=== PATIENT | female | born 1995 | race Hispanic/Latino ===

== ENCOUNTER 2017-04-12 00:21 | Emergency (ER) | payer OTHER ==
[~2017-04-12] VITALS: Ht 154.9 cm; Wt 86.9 kg
[~2017-04-12 00:21] MED LIST: BACTRIM,SEPT1 TABLET PO
[2017-04-12 00:29] VITALS: BP 138/87
[2017-04-12 00:50] LABS: HEMATOCRIT 41.8 % (36.0-46.0); MCH 29.5 PG (29.0-34.0); MCHC 34.2 G/DL (30.0-36.0); MCV 86.4 FL (83-99); MEAN PLAT.VOLUME 11.1 uM^3 (9.5-12.4); PLATELET COUNT 325 K/uL (156-360); RBC DIS.WIDTH-CV 12.6 % (11.8-14.6); RBC DIS.WIDTH-SD 39.5 % (39-53); RED BLOOD COUNT 4.84 M/uL (3.80-5.20); WHITE BLOOD COUNT 14.2 K/uL (4.1-10.2)
[2017-04-12 01:14] LABS: QUANTITATIVE HCG 3354.5 MIU/ML
[2017-04-12 02:02] LABS: CHLORIDE 108 mEq/L (99-109); POTASSIUM 3.7 mEq/L (3.7-5.4); SODIUM 139 mEq/L (136-147)
[2017-04-12 02:04] LABS: GLUCOSE 167 mg/dL (70-99)
[2017-04-12 02:05] LABS: ANION GAP 12 MEQ/L (2-14)
[2017-04-12 02:07] LABS: GFR ESTIMATE (CALCULATED) > 59 mL/min/
[2017-04-12 02:08] LABS: UREA NITROGEN (BUN) 9 mg/dL (9-23)
== END 2017-04-12 01:45 | disposition left against medical advice (07) ==
LOC: EME 00:21
DX: O26.891 Other specified pregnancy related conditions, first trimester (principal); R10.9 Unspecified abdominal pain; Z53.21 Procedure and treatment not carried out due to patient leaving prior to being seen by health care provider
CPT/HCPCS: 80048; 81003; 84702; 85027

== ENCOUNTER 2017-04-12 23:35 | Emergency (ER) | payer OTHER ==
[~2017-04-12] VITALS: Ht 157.5 cm; Wt 87.1 kg
[2017-04-13 00:07] VITALS: BP 133/79
[2017-04-13 00:57] LABS: ADD MIUA? YES; BILIRUBIN NEGATIVE; BLOOD MODERATE; COLOR YELLOW ((YELLOW)); GLUCOSE (STRIP) NEGATIVE; KETONES 5; LEUKOCYTES NEGATIVE; NITRITE NEGATIVE; PROTEIN (STRIP) >=500; UROBILINOGEN 0.2 MG/DL (0.2-1.0)
[2017-04-13 01:07] LABS: HEMATOCRIT 42.5 % (36.0-46.0); MCH 29.2 PG (29.0-34.0); MCHC 33.2 G/DL (30.0-36.0); MEAN PLAT.VOLUME 10.9 uM^3 (9.5-12.4); PLATELET COUNT 296 K/uL (156-360); RBC DIS.WIDTH-SD 41.6 % (39-53); RED BLOOD COUNT 4.83 M/uL (3.80-5.20)
[2017-04-13 01:12] LABS: BACTERIA RARE /HPF; EPITHELIAL CELLS 2+ /HPF; HYALINE CASTS 0-5 /LPF; MUCUS 2+ /LPF; RED BLOOD CELLS 0-5 /HPF (0-5); UCUL ADDED? NO; WHITE BLOOD CELLS 0-5 /HPF (0-5)
[2017-04-13 01:19] LABS: CHLORIDE 105 mEq/L (99-109); POTASSIUM 3.9 mEq/L (3.7-5.4); SODIUM 139 mEq/L (136-147)
[2017-04-13 01:23] LABS: ANION GAP 11 MEQ/L (2-14); TOTAL BILIRUBIN 0.4 mg/dL (0.0-1.0)
[2017-04-13 01:25] LABS: ALKALINE PHOSPHATASE 77 IU/L (3-129); GFR ESTIMATE (CALCULATED) > 59 mL/min/
[2017-04-13 01:26] LABS: UREA NITROGEN (BUN) 10 mg/dL (9-23)
[2017-04-13 01:28] LABS: LIPASE 20 U/L (1.0-51.0)
[2017-04-13 01:30] LABS: GLUCOSE 101 mg/dL (70-99)
[2017-04-13 01:37] LABS: QUANTITATIVE HCG 4973.6 MIU/ML
== END 2017-04-13 03:13 | disposition left against medical advice (07) ==
LOC: EME 23:35
PROVIDERS: Emergency Medicine
DX: R51 Headache (principal); R10.9 Unspecified abdominal pain; Z53.21 Procedure and treatment not carried out due to patient leaving prior to being seen by health care provider
CPT/HCPCS: 80053; 81003; 83690; 84702; 85027

== ENCOUNTER 2017-05-01 19:38 | Emergency (ER) | payer OTHER ==
[~2017-05-01] VITALS: Ht 154.9 cm; Wt 86.6 kg
[2017-05-01] MEDS ORDERED: ZOFRAN ODT4 MG PO (21:36)
[2017-05-01 21:43] VITALS: BP 129/85
== END 2017-05-01 21:51 | disposition home or self-care (01) ==
LOC: EME 19:38
DX: O99.89 Other specified diseases and conditions complicating pregnancy, childbirth and the puerperium (principal); R59.1 Generalized enlarged lymph nodes; Z87.891 Personal history of nicotine dependence; Z3A.01 Less than 8 weeks gestation of pregnancy
CPT/HCPCS: 99281; 99283

== ENCOUNTER 2017-07-04 15:18 | Emergency (ER) | payer OTHER ==
[~2017-07-04] VITALS: Ht 152.4 cm; Wt 82.0 kg
[~2017-07-04 15:18] MED LIST changes: +ZOFRAN ODT4 MG PO
[2017-07-04] MEDS ORDERED: ZOFRAN ODT4 MG PO (16:03)
[2017-07-04 16:44] LABS: APPEARANCE SL.HAZY ((CLEAR)); BILIRUBIN NEGATIVE; BLOOD SMALL; COLOR YELLOW ((YELLOW)); GLUCOSE (STRIP) 50; KETONES 5; LEUKOCYTES NEGATIVE; NITRITE NEGATIVE; PROTEIN (STRIP) >=500; SPECIFIC GRAVITY 1.024 (1.000-1.030)
[2017-07-04 16:47] LABS: BACTERIA NONE SEEN /HPF; EPITHELIAL CELLS 2+ /HPF; MUCUS TRACE /LPF; RED BLOOD CELLS 0-5 /HPF (0-5); UCUL ADDED? NO; WHITE BLOOD CELLS 0-5 /HPF (0-5)
[2017-07-04 16:50] LABS: HEMATOCRIT 38.7 % (36.0-46.0); HEMOGLOBIN 13.2 G/DL (11.9-15.5); MCH 30.1 PG (29.0-34.0); MCHC 34.1 G/DL (30.0-36.0); MCV 88.2 FL (83-99); PLATELET COUNT 292 K/uL (156-360); RBC DIS.WIDTH-CV 12.1 % (11.8-14.6); RBC DIS.WIDTH-SD 38.5 % (39-53); RED BLOOD COUNT 4.39 M/uL (3.80-5.20); WHITE BLOOD COUNT 9.4 K/uL (4.1-10.2)
[2017-07-04 17:00] LABS: CHLORIDE 108 mEq/L (99-109); POTASSIUM 3.7 mEq/L (3.7-5.4); SODIUM 138 mEq/L (136-147)
[2017-07-04 17:02] LABS: GLUCOSE 113 mg/dL (70-99)
[2017-07-04 17:06] LABS: CREATININE 0.6 mg/dL (0.6-1.3); GFR ESTIMATE (CALCULATED) > 59 mL/min/
[2017-07-04 17:07] LABS: UREA NITROGEN (BUN) 7 mg/dL (9-23)
[2017-07-04 18:24] VITALS: BP 117/56
== END 2017-07-04 18:25 | disposition home or self-care (01) ==
LOC: EME 15:18
PROVIDERS: Nurse Practitioner Family
DX: O21.9 Vomiting of pregnancy, unspecified (principal); Z3A.16 16 weeks gestation of pregnancy
CPT/HCPCS: 80048; 81003; 85027; 99281; 99284

== ENCOUNTER 2017-07-11 02:14 | Emergency (ER) | payer OTHER ==
[~2017-07-11] VITALS: Ht 152.4 cm; Wt 82.7 kg
[2017-07-11 02:18] VITALS: BP 101/67
== END 2017-07-11 03:57 | disposition left against medical advice (07) ==
LOC: EME 02:14
DX: Z04.3 Encounter for examination and observation following other accident (principal); Z53.21 Procedure and treatment not carried out due to patient leaving prior to being seen by health care provider

== ENCOUNTER 2017-07-14 23:48 | Emergency (ER) | payer OTHER ==
[~2017-07-14] VITALS: Ht 152.4 cm; Wt 82.9 kg
[2017-07-15 00:05] VITALS: BP 107/68
[2017-07-15 00:36] LABS: HEMATOCRIT 38.1 % (36.0-46.0); HEMOGLOBIN 12.8 G/DL (11.9-15.5); MCH 29.8 PG (29.0-34.0); MCHC 33.6 G/DL (30.0-36.0); MCV 88.8 FL (83-99); PLATELET COUNT 299 K/uL (156-360); RBC DIS.WIDTH-CV 12.2 % (11.8-14.6); RBC DIS.WIDTH-SD 39.4 % (39-53); RED BLOOD COUNT 4.29 M/uL (3.80-5.20); WHITE BLOOD COUNT 12.2 K/uL (4.1-10.2)
[2017-07-15 00:43] LABS: INTER. NORMALIZED RATIO 0.9
[2017-07-15 00:45] LABS: PTT 26.9 SEC (25-37)
== END 2017-07-15 00:35 | disposition left against medical advice (07) ==
LOC: EME 23:48
PROVIDERS: Physician Assistant
DX: O26.892 Other specified pregnancy related conditions, second trimester (principal); Z53.21 Procedure and treatment not carried out due to patient leaving prior to being seen by health care provider
CPT/HCPCS: 81003; 84702; 85027; 85610; 85730

== ENCOUNTER 2017-11-03 22:36 | Outpatient (CLI) | payer OTHER ==
[2017-11-03 22:56] VITALS: BP 133/83
[2017-11-04 00:08] LABS: APPEARANCE SL.HAZY ((CLEAR)); BILIRUBIN NEGATIVE; BLOOD NEGATIVE; COLOR YELLOW ((YELLOW)); GLUCOSE (STRIP) NEGATIVE; KETONES NEGATIVE; LEUKOCYTES SMALL; NITRITE NEGATIVE; PROTEIN (STRIP) 100; SPECIFIC GRAVITY 1.021 (1.000-1.030); UROBILINOGEN 0.2 MG/DL (0.2-1.0)
[2017-11-04 00:10] LABS: SOURCE SWAB
[2017-11-04 00:17] LABS: BACTERIA RARE /HPF; EPITHELIAL CELLS 1+ /HPF; MUCUS TRACE /LPF; RED BLOOD CELLS 0-5 /HPF (0-5); UCUL ADDED? YES
[2017-11-04 18:54] LABS: CANDIDA DNA PROBE POSITIVE; GARDNERELLA DNA PROBE NEGATIVE; TRICHOMONAS DNA PROBE NEGATIVE
== END 2017-11-04 01:17 | disposition home or self-care (01) ==
LOC: LDRP-OP 22:36 → 2WEST 22:40 → LDRP-OP 01-14 14:45
PROVIDERS: Midwife; Obstetrics & Gynecology Gynecology
DX: O26.893 Other specified pregnancy related conditions, third trimester (principal); O98.813 Other maternal infectious and parasitic diseases complicating pregnancy, third trimester; B37.9 Candidiasis, unspecified; O99.213 Obesity complicating pregnancy, third trimester; E66.9 Obesity, unspecified; Z68.35 Body mass index [BMI] 35.0-35.9, adult; Z87.891 Personal history of nicotine dependence; Z3A.34 34 weeks gestation of pregnancy
CPT/HCPCS: 59025; 81003; 87086; 87480; 87491; 87510; 87591; 87660; G0378

== ENCOUNTER 2017-11-05 05:56 | Outpatient (CLI) | payer OTHER ==
[2017-11-05 06:11] VITALS: BP 117/75
[2017-11-05 07:36] VITALS: BP 109/71
== END 2017-11-05 08:14 | disposition home or self-care (01) ==
LOC: LDRP-OP → 2WEST 05:57 → LDRP-OP 01-14 01:56
DX: O26.893 Other specified pregnancy related conditions, third trimester (principal); Z3A.34 34 weeks gestation of pregnancy; R10.9 Unspecified abdominal pain
CPT/HCPCS: 59025; G0378

== ENCOUNTER 2017-11-15 14:39 | Outpatient (CLI) | payer OTHER ==
[2017-11-15 14:56] VITALS: BP 134/90
[2017-11-15 15:34] LABS: BASOPHIL (%) 0.2 % (0-1); EOSINOPHIL (%) 0.1 % (0-5); HEMATOCRIT 44.7 % (36.0-46.0); HEMOGLOBIN 15.1 G/DL (11.9-15.5); IMMATURE GRANULOCYTE (%) 0.4 % (0.0-0.7); LYMPHOCYTE (%) 5.3 % (15-42); LYMPHOCYTE COUNT 1.1 K/uL (1.0-2.8); MCH 28.3 PG (29.0-34.0); MCHC 33.8 G/DL (30.0-36.0); MCV 83.9 FL (83-99); MONOCYTE (%) 4.6 % (3-12); MONOCYTE COUNT 0.9 K/uL (0-0.8); NEUTROPHIL (%) 89.4 % (45-76); NEUTROPHIL COUNT 17.9 K/uL (1.8-6.4); PLATELET COUNT 333 K/uL (156-360); RBC DIS.WIDTH-CV 13.1 % (11.8-14.6); RBC DIS.WIDTH-SD 39.5 % (39-53); RED BLOOD COUNT 5.33 M/uL (3.80-5.20); WHITE BLOOD COUNT 19.9 K/uL (4.1-10.2)
[2017-11-15 15:47] LABS: ALBUMIN 3.8 g/dL (3.2-4.8)
[2017-11-15 15:48] LABS: CHLORIDE 110 mEq/L (99-109); POTASSIUM 5.2 mEq/L (3.7-5.4); SODIUM 141 mEq/L (136-147)
[2017-11-15 15:49] VITALS: BP 115/85
[2017-11-15 15:50] LABS: GLUCOSE 88 mg/dL (70-99); TOTAL PROTEIN 7.7 g/dL (6.4-8.3)
[2017-11-15 15:52] LABS: TOTAL BILIRUBIN 0.6 mg/dL (0.0-1.0)
[2017-11-15 15:53] LABS: ALKALINE PHOSPHATASE 271 IU/L (3-129)
[2017-11-15 15:54] LABS: CREATININE 0.7 mg/dL (0.6-1.3); GFR ESTIMATE (CALCULATED) > 59 mL/min/
[2017-11-15 15:55] LABS: AST (GOT) 31 IU/L (2-34); UREA NITROGEN (BUN) 11 mg/dL (9-23)
[2017-11-15 15:57] LABS: ALT (GPT) 10 IU/L (3-49); URIC ACID 6.8 mg/dL (3.1-9.2)
[2017-11-15 16:05] VITALS: BP 115/82
[2017-11-15 19:06] LABS: APPEARANCE SL.HAZY ((CLEAR)); BILIRUBIN NEGATIVE; BLOOD NEGATIVE; COLOR YELLOW ((YELLOW)); GLUCOSE (STRIP) NEGATIVE; KETONES 80; LEUKOCYTES NEGATIVE; NITRITE NEGATIVE; PROTEIN (STRIP) 100; SPECIFIC GRAVITY 1.024 (1.000-1.030); UROBILINOGEN 0.2 MG/DL (0.2-1.0)
[2017-11-15 19:21] LABS: BACTERIA RARE /HPF; EPITHELIAL CELLS 1+ /HPF; MUCUS 2+ /LPF; RED BLOOD CELLS 0-5 /HPF (0-5); UCUL ADDED? NO; WHITE BLOOD CELLS 0-5 /HPF (0-5)
[2017-11-15 19:27] LABS: UR CREATININE CONCENTRATION 185.4 MG/DL
[2017-11-15 19:37] VITALS: BP 127/82
== END 2017-11-15 20:15 | disposition home or self-care (01) ==
LOC: LDRP-OP 14:39 → 2WEST 14:40 → LDRP-OP 01-14 09:07
PROVIDERS: Nurse Practitioner
DX: O26.893 Other specified pregnancy related conditions, third trimester (principal); R11.2 Nausea with vomiting, unspecified; R19.7 Diarrhea, unspecified; R10.10 Upper abdominal pain, unspecified; Z91.19 Patient's noncompliance with other medical treatment and regimen; Z87.440 Personal history of urinary (tract) infections
CPT/HCPCS: 59025; 80053; 81003; 82570; 84156; 84550; 85025; 87077; 87081; 87186; G0378; J2405; J7120

== ENCOUNTER 2017-11-17 11:15 | Outpatient (CLI) | payer OTHER ==
[2017-11-17 11:39] VITALS: BP 114/76
[2017-11-17] MEDS ORDERED: PRENATA CHEWAB1 EACH PO (11:43)
[2017-11-17 12:25] LABS: BASOPHIL (%) 0.1 % (0-1); EOSINOPHIL (%) 0.3 % (0-5); HEMATOCRIT 38.4 % (36.0-46.0); IMMATURE GRANULOCYTE (%) 0.3 % (0.0-0.7); LYMPHOCYTE (%) 9.5 % (15-42); LYMPHOCYTE COUNT 1.3 K/uL (1.0-2.8); MCH 28.3 PG (29.0-34.0); MCHC 33.9 G/DL (30.0-36.0); MCV 83.5 FL (83-99); MONOCYTE (%) 5.4 % (3-12); MONOCYTE COUNT 0.7 K/uL (0-0.8); NEUTROPHIL (%) 84.4 % (45-76); NEUTROPHIL COUNT 11.3 K/uL (1.8-6.4); PLATELET COUNT 277 K/uL (156-360); RBC DIS.WIDTH-CV 12.8 % (11.8-14.6); RBC DIS.WIDTH-SD 38.5 % (39-53); WHITE BLOOD COUNT 13.4 K/uL (4.1-10.2)
[2017-11-17 12:27] VITALS: BP 98/61
[2017-11-17 12:32] LABS: ALBUMIN 3.3 g/dL (3.2-4.8); CHLORIDE 109 mEq/L (99-109); POTASSIUM 4.2 mEq/L (3.7-5.4); SODIUM 138 mEq/L (136-147)
[2017-11-17 12:34] LABS: GLUCOSE 84 mg/dL (70-99)
[2017-11-17 12:36] LABS: TOTAL BILIRUBIN 0.5 mg/dL (0.0-1.0)
[2017-11-17 12:38] LABS: ALKALINE PHOSPHATASE 211 IU/L (3-129); CREATININE 0.7 mg/dL (0.6-1.3); GFR ESTIMATE (CALCULATED) > 59 mL/min/
[2017-11-17 12:39] LABS: TOTAL PROTEIN 6.5 g/dL (6.4-8.3); UREA NITROGEN (BUN) 8 mg/dL (9-23)
[2017-11-17 12:41] LABS: ALT (GPT) 7 IU/L (3-49); AST (GOT) 11 IU/L (2-34)
[2017-11-17 13:17] LABS: APPEARANCE CLOUDY ((CLEAR)); BILIRUBIN NEGATIVE; BLOOD NEGATIVE; COLOR AMBER ((YELLOW)); GLUCOSE (STRIP) NEGATIVE; KETONES 5; LEUKOCYTES SMALL; NITRITE NEGATIVE; PROTEIN (STRIP) 100; SPECIFIC GRAVITY 1.023 (1.000-1.030); UROBILINOGEN 0.2 MG/DL (0.2-1.0)
[2017-11-17 13:33] LABS: BACTERIA RARE /HPF; EPITHELIAL CELLS 3+ /HPF; MUCUS 2+ /LPF; RED BLOOD CELLS 0-5 /HPF (0-5)
[2017-11-17 13:40] VITALS: BP 105/69
[2017-11-17 14:52] LABS: AMPHETAMINE NEGATIVE (500 ng/mL); BARBITURATES NEGATIVE (200 ng/mL); BENZODIAZEPINES NEGATIVE (150 ng/mL); BUPRENORPHINE NEGATIVE (10 ng/mL); COCAINE NEGATIVE (150 ng/mL); METHADONE NEGATIVE (200 ng/mL); METHAMPHETAMINE NEGATIVE (500 ng/mL); OPIATES (MORPHINE) NEGATIVE (100 ng/mL); OXYCODONE NEGATIVE (100 ng/mL); PHENCYCLIDINE NEGATIVE (25 ng/mL); PROPOXYPHENE NEGATIVE (300 ng/mL); THC CANNABINOIDS NEGATIVE (50 ng/mL); TRICYCLIC ANTIDEPRESSANTS NEGATIVE (300 ng/mL)
[2017-11-17 15:01] LABS: LACTATE DEHYDROGENASE 187 IU/L (20-246)
[2017-11-17 16:05] VITALS: BP 117/59
[2017-11-17] MEDS ORDERED: ZOFRAN ODT4 MG PO (21:59)
[2017-11-17 22:07] VITALS: BP 118/85
== END 2017-11-17 22:10 | disposition home or self-care (01) ==
LOC: LDRP-OP → 2WEST 11:16 → LDRP-OP 01-14 21:34
PROVIDERS: Obstetrics & Gynecology
DX: O99.613 Diseases of the digestive system complicating pregnancy, third trimester (principal); K52.9 Noninfective gastroenteritis and colitis, unspecified; O12.13 Gestational proteinuria, third trimester; Z3A.36 36 weeks gestation of pregnancy; Z68.35 Body mass index [BMI] 35.0-35.9, adult; Z91.19 Patient's noncompliance with other medical treatment and regimen
CPT/HCPCS: 59025; 80053; 81003; 83615; 85025; 87086; G0378; J7120

== ENCOUNTER 2017-12-04 12:20 | Outpatient (CLI) | payer OTHER ==
[~2017-12-04 12:20] MED LIST changes: +PRENATA CHEWAB1 EACH PO
[2017-12-04 12:42] VITALS: BP 123/77
== END 2017-12-04 14:54 | disposition home or self-care (01) ==
LOC: LDRP-OP 12:20 → 2WEST 12:21 → LDRP-OP 01-14 09:46
DX: O36.8130 Decreased fetal movements, third trimester, not applicable or unspecified (principal); Z3A.38 38 weeks gestation of pregnancy
CPT/HCPCS: 59025; C1755; G0378

== ENCOUNTER 2017-12-06 16:34 | Inpatient (IN) | payer OTHER ==
[~2017-12-06] VITALS: Ht 154.9 cm; Wt 88.4 kg
[2017-12-06 17:03] VITALS: BP 129/76
[2017-12-06 17:36] LABS: BASOPHIL (%) 0.3 % (0-1); EOSINOPHIL (%) 0.5 % (0-5); EOSINOPHIL COUNT 0.1 K/uL (0-0.3); IMMATURE GRANULOCYTE (%) 0.3 % (0.0-0.7); MCH 28.2 PG (29.0-34.0); MCHC 33.3 G/DL (30.0-36.0); MCV 84.5 FL (83-99); MONOCYTE (%) 5.7 % (3-12); MONOCYTE COUNT 0.6 K/uL (0-0.8); NEUTROPHIL (%) 75.2 % (45-76); NEUTROPHIL COUNT 8.4 K/uL (1.8-6.4); PLATELET COUNT 226 K/uL (156-360); RBC DIS.WIDTH-CV 13.9 % (11.8-14.6); RBC DIS.WIDTH-SD 42.5 % (39-53); RED BLOOD COUNT 4.26 M/uL (3.80-5.20); WHITE BLOOD COUNT 11.1 K/uL (4.1-10.2)
[2017-12-06 18:07] VITALS: BP 116/79
[2017-12-06 18:25] LABS: AMPHETAMINE NEGATIVE (500 ng/mL); BARBITURATES NEGATIVE (200 ng/mL); BENZODIAZEPINES NEGATIVE (150 ng/mL); BUPRENORPHINE NEGATIVE (10 ng/mL); COCAINE NEGATIVE (150 ng/mL); METHADONE NEGATIVE (200 ng/mL); METHAMPHETAMINE NEGATIVE (500 ng/mL); OPIATES (MORPHINE) NEGATIVE (100 ng/mL); OXYCODONE NEGATIVE (100 ng/mL); PHENCYCLIDINE NEGATIVE (25 ng/mL); PROPOXYPHENE NEGATIVE (300 ng/mL); THC CANNABINOIDS NEGATIVE (50 ng/mL); TRICYCLIC ANTIDEPRESSANTS NEGATIVE (300 ng/mL)
[2017-12-06 19:04] VITALS: BP 119/72
[2017-12-06 19:36] VITALS: BP 138/60
[2017-12-06 20:04] VITALS: BP 131/64
[2017-12-06 22:33] VITALS: BP 115/63
[2017-12-07] VITALS (28 sets, daily range): BP systolic 87–164; BP diastolic 51–101
[2017-12-07 09:55] LABS: TREPONEMA ANTIBODY NEGATIVE (NEGATIVE)
[2017-12-07] MEDS ORDERED: IBUPROFEN800 MG PO (10:49)
[2017-12-08 22:54] VITALS: BP 127/80
== END 2017-12-09 13:15 | disposition home or self-care (01) | DRG 775 ==
LOC: LDRP-OP 16:34 → 2WEST 16:35 → LDRP-OP 01-14 15:04
PROVIDERS: Advanced Practice Midwife
DX: O36.5930 Maternal care for other known or suspected poor fetal growth, third trimester, not applicable or unspecified (principal); O99.824 Streptococcus B carrier state complicating childbirth; O99.214 Obesity complicating childbirth; E66.9 Obesity, unspecified; Z68.35 Body mass index [BMI] 35.0-35.9, adult; Z3A.39 39 weeks gestation of pregnancy; Z37.0 Single live birth
CPT/HCPCS: 59025; 85025; 86780; C1755; G0378; J0595; J2540; J2590; J3010; J7120

== ENCOUNTER 2017-12-14 03:04 | Emergency (ER) | payer OTHER ==
[~2017-12-14] VITALS: Ht 152.4 cm; Wt 80.6 kg
[~2017-12-14 03:04] MED LIST changes: +IBUPROFEN800 MG PO
[2017-12-14 04:11] LABS: APPEARANCE SL.HAZY ((CLEAR)); BILIRUBIN NEGATIVE; BLOOD LARGE; COLOR YELLOW ((YELLOW)); GLUCOSE (STRIP) NEGATIVE; KETONES 20; LEUKOCYTES MODERATE; NITRITE NEGATIVE; PROTEIN (STRIP) >=500; SPECIFIC GRAVITY 1.023 (1.000-1.030); UROBILINOGEN 0.2 MG/DL (0.2-1.0)
[2017-12-14 04:19] LABS: BASOPHIL (%) 0.3 % (0-1); EOSINOPHIL (%) 2.1 % (0-5); EOSINOPHIL COUNT 0.2 K/uL (0-0.3); HEMATOCRIT 37.6 % (36.0-46.0); HEMOGLOBIN 12.4 G/DL (11.9-15.5); IMMATURE GRANULOCYTE (%) 0.8 % (0.0-0.7); LYMPHOCYTE (%) 25.8 % (15-42); LYMPHOCYTE COUNT 2.9 K/uL (1.0-2.8); MCH 28.2 PG (29.0-34.0); MCV 85.6 FL (83-99); MONOCYTE (%) 6.2 % (3-12); MONOCYTE COUNT 0.7 K/uL (0-0.8); NEUTROPHIL (%) 64.8 % (45-76); NEUTROPHIL COUNT 7.3 K/uL (1.8-6.4); RBC DIS.WIDTH-CV 13.7 % (11.8-14.6); RBC DIS.WIDTH-SD 42.7 % (39-53); RED BLOOD COUNT 4.39 M/uL (3.80-5.20); WHITE BLOOD COUNT 11.2 K/uL (4.1-10.2)
[2017-12-14 04:20] LABS: BACTERIA NONE SEEN /HPF; EPITHELIAL CELLS RARE /HPF; MUCUS 1+ /LPF; RED BLOOD CELLS TNTC /HPF (0-5); UCUL ADDED? YES; WHITE BLOOD CELLS TNTC /HPF (0-5)
[2017-12-14 04:22] LABS: PLATELET COUNT 340 K/uL (156-360)
[2017-12-14 04:29] LABS: ALBUMIN 3.8 g/dL (3.2-4.8)
[2017-12-14 04:30] LABS: CHLORIDE 108 mEq/L (99-109); POTASSIUM 3.9 mEq/L (3.7-5.4); SODIUM 140 mEq/L (136-147)
[2017-12-14 04:32] LABS: GLUCOSE 91 mg/dL (70-99); TOTAL PROTEIN 7.6 g/dL (6.4-8.3)
[2017-12-14 04:34] LABS: TOTAL BILIRUBIN 0.7 mg/dL (0.0-1.0)
[2017-12-14 04:35] LABS: ALKALINE PHOSPHATASE 181 IU/L (3-129)
[2017-12-14 04:36] LABS: CREATININE 0.7 mg/dL (0.6-1.3); GFR ESTIMATE (CALCULATED) > 59 mL/min/
[2017-12-14 04:37] LABS: AST (GOT) 24 IU/L (2-34); UREA NITROGEN (BUN) 10 mg/dL (9-23)
[2017-12-14 04:38] LABS: ALT (GPT) 35 IU/L (3-49)
[2017-12-14] MEDS ORDERED: FLEXERIL10 MG PO (06:51)
[2017-12-14] MEDS ORDERED: ANUSOL-HC21 GM PR (06:51)
[2017-12-14] MEDS ORDERED: NORCO 5/3251 TABLET PO (06:51)
[2017-12-14] MEDS ORDERED: KEFLEX500 MG PO (06:51)
[2017-12-14] MEDS ORDERED: COLACE100 MG PO (06:52)
[2017-12-14 10:04] VITALS: BP 121/88
== END 2017-12-14 10:00 | disposition home or self-care (01) ==
LOC: EME 03:04
PROVIDERS: Emergency Medicine
DX: K64.4 Residual hemorrhoidal skin tags (principal); M54.42 Lumbago with sciatica, left side
CPT/HCPCS: 72132; 80053; 81003; 85025; 87086; 99281; 99285; J1100; J7030